=== PATIENT | female | born 1990 | race Caucasian/White ===

== ENCOUNTER 2017-01-21 10:48 | Emergency (ER) | payer MEDICAID ==
[~2017-01-21] VITALS: Ht 160 cm; Wt 83.0 kg
[~2017-01-21 10:48] MED LIST: KEFLEX 500MG.500 MG PO
--- OUTSIDE RECORDS SUMMARY | 2017-01-21 10:51 | External Medical Summary Rpt | CCD ---
Author Author [employer] Organization [employer] Address Unknown Phone Unavailable Purpose Continuity of Care Document - through 2016
--- OUTSIDE RECORDS SUMMARY | 2017-01-21 10:51 | External Medical Summary Rpt | CCD ---
Author Author , FORD YOUNGBLOOD Address Unknown Phone Purpose Continuity of Care Document - 11-02-2016 through 2016 Problems Code Diagnosis DOS Provider Status S61.219A LACERATION W/O FB OF UNSP FINGER W/O DAMAGE TO NAIL, INIT
--- OUTSIDE RECORDS SUMMARY | 2017-01-21 10:52 | External Medical Summary Rpt | CCD ---
Author Author , FORD YOUNGBLOOD Address Unknown Phone [email or web address] Immunization Name Date Rout CVX Reac Dose Comm Prov Is Faci e tion ent ider Refu lity Give sed n Tdap 11-1 115 999 Hist H196 No H196 , 3-20 oric Adso 12 al rbed Info rmat ion - Sour ce Unsp ecif ied Hep 02-2 8 999 Hist H196 No H196 B, 8-20 oric ped/ 01 al adol Info rmat ion - Sour ce Unsp ecif ied Hep 09-1 8 999 Hist H196 No H196 B, 9-20 oric ped/ 00 al adol Info rmat ion - Sour ce Unsp ecif ied Hep 08-1 8 999 Hist H196 No H196 B, 5-20 oric ped/ 00 al adol Info rmat ion - Sour ce Unsp ecif ied MMR 08-1 3 999 Hist H196 No H196 5-20 oric 00 al Info rmat ion - Sour ce Unsp ecif ied
--- OUTSIDE RECORDS SUMMARY | 2017-01-21 10:52 | External Medical Summary Rpt ---
Author Author [employer], [employer] Organization [employer] Address Unknown Phone Unavailable Results DIARRHEA PANEL,PCR Observa Value Referen Units Interpr Notes Date tion ce etation Range Adenovi NOT NOT No No No Nov 02 benigno DETECTE DETECTE informa informa informa 2017 40+41 D tion in tion in tion in 10:15 Ag source source source AM [Presen data data data ce] in Stool Aeromon NOT NOT No No No Nov 02 as DETECTE DETECTE informa informa informa 2017 salmoni D tion in tion in tion in 10:15 napoleon source source source AM [Presen data data data ce] in Unspeci fied specime n Astrovi NOT NOT No No No Nov 02 benigno DETECTE DETECTE informa informa informa 2017 [Presen D tion in tion in tion in 10:15 ce] in source source source AM Stool data data data by Electro n microsc opy Campylo NOT NOT No No No Nov 02 bacter DETECTE DETECTE informa informa informa 2017 sp Ab D tion in tion in tion in 10:15 [Presen source source source AM ce] in data data data Serum Clostri NOT NOT No No No Nov 02 dium DETECTE DETECTE informa informa informa 2017 diffici D tion in tion in tion in 10:15 le source source source AM toxin data data data A+B [Presen ce] in Stool Cryptos NOT NOT No No No Nov 02 poridiu DETECTE DETECTE informa informa informa 2017 m sp Ag D tion in tion in tion in 10:15 source source source AM [Presen data data data ce] in Unspeci fied specime n Cyclosp NOT NOT No No No Nov 02 ora DETECTE DETECTE informa informa informa 2017 cayetan D tion in tion in tion in 10:15 sun source source source AM [Presen data data data ce] in Unspeci fied specime n Escheri NOT NOT No No No Nov 02 gato DETECTE DETECTE informa informa informa 2017 coli D tion in tion in tion in 10:15 [Presen source source source AM ce] in data data data Unspeci fied specime n by Culture FDA method Escheri NOT NOT No No No Nov 02 gato DETECTE DETECTE informa informa informa 2017 coli D tion in tion in tion in 10:15 [Presen source source source AM ce] in data data data Unspeci fied specime n by Culture FDA method Escheri NOT NOT No No No Nov 02 gato DETECTE DETECTE informa informa informa 2017 coli D tion in tion in tion in 10:15 Shiga-l source source source AM magalys data data data toxin 1 assa Escheri NOT NOT No No No Nov 02 gato DETECTE DETECTE informa informa informa 2017 coli D tion in tion in tion in 10:15 O157:H7 source source source AM data data data [Presen ce] in Stool by Organis m specifi c culture Entamoe NOT NOT No No No Nov 02 ba DETECTE DETECTE informa informa informa 2017 histoly D tion in tion in tion in 10:15 palak source source source AM [Presen data data data ce] in Stool by Trichro me stain Giardia NOT NOT No No No Nov 02 DETECTE DETECTE informa informa informa 2017 lamblia D tion in tion in tion in 10:15 Ag source source source AM [Presen data data data ce] in Stool Norovir NOT NOT No No No Nov 02 us Ag DETECTE DETECTE informa informa informa 2017 [Presen D tion in tion in tion in 10:15 ce] in source source source AM Stool data data data Stool NOT NOT No No No Nov 02 Plesiom DETECTE DETECTE informa informa informa 2017 onas D tion in tion in tion in 10:15 shigell source source source AM oides data data data DNA detec Rotavir NOT NOT No No No Nov 02 us RNA DETECTE DETECTE informa informa informa 2017 detecti D tion in tion in tion in 10:15 on by source source source AM probe data data data and tar Salmone NOT NOT No No No Nov 02 lla sp DETECTE DETECTE informa informa informa 2017 DNA D tion in tion in tion in 10:15 [Identi source source source AM fier] data data data in Unspeci fied specime n by Probe & target amplifi cation method Caliciv NOT NOT No No No Nov 02 irus DETECTE DETECTE informa informa informa 2017 [Identi D tion in tion in tion in 10:15 fier] source source source AM in data data data Stool by Electro n microsc opy Escheri NOT NOT No No No Nov 02 gato DETECTE DETECTE informa informa informa 2017 coli D tion in tion in tion in 10:15 [Presen source source source AM ce] in data data data Unspeci fied specime n by Culture FDA method Escheri NOT NOT No No No Nov 02 gato DETECTE DETECTE informa informa informa 2017 coli D tion in tion in tion in 10:15 SXT source source source AM gene+H7 data data data gene [Identi fier] in Unspeci fied specime n by Probe & target amplifi cation method Vibrio NOT NOT No No No Nov 02 cholera DETECTE DETECTE informa informa informa 2017 e DNA D tion in tion in tion in 10:15 [Presen source source source AM ce] in data data data Unspeci fied specime n by Probe & target amplifi cation method Vibrio NOT NOT No No No Nov 02 sp DNA DETECTE DETECTE informa informa informa 2017 [Identi D tion in tion in tion in 10:15 fier] source source source AM in data data data Unspeci fied specime n by Probe & target amplifi cation method Vibrio NOT NOT No No No Nov 02 sp DETECTE DETECTE informa informa informa 2017 identif D tion in tion in tion in 10:15 ied in source source source AM Stool data data data by Caroline m specifi c culture
--- OUTSIDE RECORDS SUMMARY | 2017-01-21 10:52 | External Medical Summary Rpt | CCD ---
Author Author , FORD YOUNGBLOOD Address Unknown Phone [email or web address] Immunization Name Date Rout CVX Reac Dose [...]
--- NOTE | 2017-01-21 11:05 | Urgent Treatment Center Report ---
History of Present Issue Date/Time Seen by Provider 01/21/17 1101 Visit Reason Pt arrived:Walked Presenting Problem:PT C/O SINUS PRESSURE, CONGESTION, AND SORE THROAT X2 WEEKS Location if Accident: Onset of symptoms date/time:/ or onset unknown for:MEDICAL HX UNKNOWN Have you (or family members/close friends) recently traveled outside the [place]? N If Yes, where/when: Have you had exposure to infectious disease within the past month? TB? Other? Specify: Patient state that she has been having sinus pain and pressure along with sore throat for over 2 weeks now State that she had something simular to this about 3 -4 weeks ago but it went away and now its back and worse than what it was the first time ALLERGIES Coded Allergies: No Known Allergies (07/24/16) Home Medications Active Scripts CEPHALEXIN (Keflex 500MG Capsule) 500 MG PO Q8 #21 CAP Prov: 07/24/16 History Medical History General CAD? No Angina: No [place]: No Hypertension? No Hyperlipidemia? Yes CHF? No DVT? No PE? No COPD? No Asthma? No Anemia? No GERD? No Gastric ulcers? No GI Bleed? No Hernia? No Thyroid Problems? No Hypothyroidism? No CVA? No Seizures? No Diabetes? No Renal Insuffiency? No UTI? Yes Stones? Yes BPH? No GB Disease: No Nephritic Syndrome? No Asplenia? No Hepatitis? No Sickle Cell Disease? No Arthritis? No Migraines? No Cataracts? No Glaucoma? No MRSA? No HIV? No TB? No Anxiety? No Depression? No Cancer? No More? No Immunization HX DT/Tetanus 5-10 YRS Flu 2YRSorMore Pneumonia NEVER Surgical Hx Previous Surgery?Y L. ARM SURGERY L. EYE SURGERY Family History Family HX Diabetes No CAD Yes Hypertension Yes Hyperlipidemia Yes Cancer Yes TB No Social History Smoking Hx Smoker: Never Smoker Tobacco: No Alcohol Alcohol: No Review of Systems All Other Systems Reviewed and Negative ENT nose congestion, throat pain. Respiratory cough Physical Exam Vital Signs Vital Signs Date Time Temp Pulse Resp B/P Pulse O2 O2 Flow FiO2 Ox Delivery Rate 01/21 1055 98.1 116 20 120/95 96 General Appearance normal appearance, WD/WN, no apparent distress Ear, Nose, Throat sinus pain/drainage, nasal congestion, Throat red, irritated drainage noted, tenderness noted frontal sinuses Reports dark yellowish green drainage from nose Respiratory Status Yes: trachea midline, chest symmetrical, non tender chest. No: respiratory distress. Lung Sounds bilateral: normal breath sounds, lungs clear. Cardiovascular normal exam, regular rate/rhythm, no peripheral edema Neurologic alert, normal exam, oriented x 3 Medical Decision Making LABS/Meds/Orders Pt receiving controlled substance in ED? No Results/Orders Orders Procedure Date/time Status [facility] STREP SCREEN 01/21 1055 Active Departure Departure Time of Disposition 1109 Disposition DC Home or Self Care(routine) Clinical Impression Primary Impression: Sinusitis Qualifiers: Sinusitis location: frontal Chronicity: unspecified Qualified Code: J32.1 - Chronic frontal sinusitis Condition STABLE Referrals Timothy HOLDEN,A.C. (Family): 3 Days-Call Office Patient Instructions DI for Sinusitis, Sinus Headache, Sore Throat Additional Instructions * Monitor Temp. Tylenol and/or Ibuprofen as needed. ER if fever is no less than 101 despite alternating Tylenol and Ibuprofen * Encourage fluids, water, Gatorade, powerade, pedialyte if /toddler/or child * Warm salt water gargles for throat irritation *Warm fluids *Sore throat lozenges *Sleep elevated *humidifier or vaporizer Lots of rest Increase fluids, water, Gatorade, powerade *Flonase 2 sprays each nostril daily but may take 2-3 days to notice improvement with it *Bromfed may cause drowsiness. Know how it effect you or your child. Before driving, caring for small children or sending your child to school *Your throat swab was sent to lab for culture. Those results area typically sent to your primary care physician. Be sure to follow up in 2-3 days if no improvement so they can review those results and treat if necessary If you dont have primary care I recommend you get one, but in the mean time you will have to return to a walk in clinic Follow up IMMEDIATELY for new or worsening of symptoms OR no noticeable improvement over the next 48-72 hours. 911 immediately for any life threatening symptoms such as chest pain or difficulty breathing Discharge Counseling Counseled pt/family regarding diagnosis, test results, medications/RX, home care, follow up needs Prescriptions Current Visit Scripts Amoxicillin/Potassium Clav (Augmentin 875-125 Tablet) 1 EACH PO BID #14 TAB Fluticasone Propionate (Flonase 50 Mcg Nasal [place]) 2 SPRAY NA DAILY #1 BOT Methylprednisolone (Medrol Dose Lola) 4 MG PO UD #1 LOLA TAKE DIRECTED ON PACKAGING at 1118
[2017-01-21] MEDS ORDERED: MEDROL 4MG. DOSE4 MG PO (11:13)
[2017-01-21] MEDS ORDERED: FLONASE 50 MCG16 GM (11:13)
[2017-01-21] MEDS ORDERED: AUGMENTIN 875-1 EACH PO (11:13)
[2017-01-21 11:15] VITALS: BP 120/95
== END 2017-01-21 11:19 | disposition home or self-care (01) ==
LOC: UTC 10:48
DX: J32.1 Chronic frontal sinusitis (principal); E78.5 Hyperlipidemia, unspecified